=== PATIENT | female | born 2000 | race Two or more races ===

== ENCOUNTER 2023-12-31 16:05 | Emergency (ER) | payer SELFPAY ==
[2023-12-31 16:06] VITALS: BP 150/107; PULSE 85; RESP 14; TEMP 36.3; O2SAT 100; BMI 31.4
[2023-12-31 16:24] LABS: Color, Urine Yellow (Yellow); Glucose, Dipstick Normal (Normal); Ketone-Dipstick Negative (Negative); Leukocyte Esterase-Dipstick Negative /ul (Negative); Nitrite-Dipstick Negative (Negative); Occult Blood-Urine Negative /ul (Negative); Protein-Dipstick 15 mg/dl (Negative); Specific Gravity, Urine 1.025 (1.002-1.030); Urine Bilirubin Dipstick Negative (Negative); Urine Clarity Clear (Clear); Urine Urobilinogen Normal (Normal)
[2023-12-31 16:53] LABS: Bacteria 1+ /hpf (None Seen); Mucous, Urine 1+ /hpf (<or=2+)
[2023-12-31 16:54] LABS: Red Blood Cells-Urine 0-5 SEEN /hpf (0-5); Squamous Epithelial Cells - UA 0-5 SEEN /hpf (5-10); White Blood Cells 0-5 SEEN /hpf (0-5)
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
== END 2023-12-31 17:55 | disposition left against medical advice (07) ==
LOC: ED 18:12
DX: R10.9 Unspecified abdominal pain (principal)
CPT/HCPCS: 81001